=== PATIENT | male | born 1995 | race American Indian/Alaskan Native ===

== ENCOUNTER 2016-09-13 09:09 | Emergency (ER) | payer SELFPAY ==
[2016-09-13 09:56] VITALS: BP 123/97
--- NOTE | 2016-09-13 10:07 | Emergency Department Report ---
Chief Complaint: Abdominal Pain Stated Complaint: LFT SIDE PAIN Time Seen by Provider: 09/13/16 09:59 - HPI History of Present Illness: 21-year-old male presents today with left flank pain 2 days. Positive for dysuria, increased urinary frequency. Denies fever, chills, nausea, vomiting, chest pain, shortness of breath, penile discharge. Also complaining of abdominal pain prior to start of these symptoms. - ROS Review of Systems: Per HPI - Exam Vital Signs: Vital Signs 09/13/16 09:53 Temperature 98.4 F Pulse Rate 77 Respiratory 16 Rate Blood Pressure 123/97 O2 Sat by Pulse 99 Oximetry Physical Exam: General: 21-year-old male in no acute distress. Well-developed, well-nourished. CV: Regular rate and rhythm. Lungs: Clear to auscultation bilaterally. Abdomen: Tenderness to palpation of the epigastric region. No guarding or rebound tenderness. Negative for CVA tenderness bilaterally. MSE screening note: Focused history and physical exam performed. Due to findings the following was ordered: ED Disposition for MSE Condition: Stable
[2016-09-13 10:47] LABS: Basophils % (Auto) 0.8 % (0.0-1.8); Hematocrit 46.2 % (35.5-45.6); Hemoglobin 15.4 gm/dl (11.8-15.2); Mean Corpuscular HGB Conc 33 % (32-34); Mean Corpuscular Hemoglobin 28 pg (28-32); Mean Corpuscular Volume 83 fl (84-94); Platelet Count 243 K/mm3 (140-440); Red Blood Count 5.59 M/mm3 (3.65-5.03); Red Cell Distribution Width 13.2 % (13.2-15.2)
[2016-09-13 10:51] LABS: Amylase 82 units/L (27-131); Anion Gap 17 mmol/L; BUN/Creatinine Ratio 11.25; Blood Urea Nitrogen 9 mg/dL (9-20); Calcium 9.5 mg/dL (8.4-10.2); Carbon Dioxide 29 mmol/L (22-30); Chloride 99.1 mmol/L (98-107); Glucose 94 mg/dL (75-100); Lipase 14 units/L (13-60); Potassium 4.8 mmol/L (3.6-5.0); Sodium 140 mmol/L (137-145)
[2016-09-13 11:02] LABS: Bilirubin,Urine NEG (Negative); Blood,Urine NEG (Negative); Ketones,Urine NEG (Negative); Leukocyte Esterase,Urine TR (Negative); Nitrite,Urine NEG (Negative); Protein,Urine <15 mg/dL mg/dL (Negative); Urobilinogen,Urine < 2.0 mg/dL (<2.0)
--- NOTE | 2016-09-15 15:45 | ED Elopement Review ---
ED Pt Elopement review - Results review Lab results: Laboratory Tests 09/13/16 09/13/16 09/13/16 10:23 10:23 10:37 WBC 4.0 L RBC 5.59 H Hgb 15.4 H Hct 46.2 H MCV 83 L MCH 28 MCHC 33 RDW 13.2 Plt Count 243 Lymph % (Auto) 32.3 Graves % (Auto) 7.4 H Eos % (Auto) 1.0 Baso % (Auto) 0.8 Lymph # 1.3 Graves # 0.3 Eos # 0.0 Baso # 0.0 Seg Neutrophils % 58.5 Seg Neutrophils # 2.3 Sodium 140 Potassium 4.8 Chloride 99.1 Carbon Dioxide 29 Anion Gap 17 BUN 9 Creatinine 0.8 Estimated GFR > 60 BUN/Creatinine Ratio 11.25 Glucose 94 Calcium 9.5 Amylase 82 Lipase 14 Urine Color Straw Urine Turbidity Clear Urine pH 7.0 Ur Specific [place] 1.008 Urine Protein <15 mg/dl Urine Glucose (UA) Neg Urine Ketones Neg Urine Blood Neg Urine Nitrite Neg Urine Bilirubin Neg Urine Urobilinogen < 2.0 Ur Leukocyte Esterase Tr Urine WBC (Auto) 7.0 H Urine RBC (Auto) 1.0 - Call Back decision Pt Call Back Decision: No action required
== END 2016-09-13 16:08 | disposition left against medical advice (07) ==
LOC: ED 09:09
DX: R10.13 Epigastric pain (principal); R30.0 Dysuria; Z53.21 Procedure and treatment not carried out due to patient leaving prior to being seen by health care provider
CPT/HCPCS: 36415; 80048; 81001; 82150; 83690; 85025

== ENCOUNTER 2018-04-13 18:07 | Emergency (ER) | payer SELFPAY ==
[2018-04-13] MEDS ORDERED: NACL 0.9% 1000 ML 1,000 ML IV ONE (18:13)
[2018-04-13 18:27] VITALS: BP 121/90
[2018-04-13 18:28] LABS: Basophils % (Auto) 0.4 % (0.0-1.8); Eosinophils % (Auto) 0.1 % (0.0-4.3); Hematocrit 48.7 % (35.5-45.6); Lymphocytes # (Auto) 1.4 K/mm3 (1.2-5.4); Lymphocytes % (Auto) 16.7 % (13.4-35.0); Mean Corpuscular HGB Conc 35 % (32-34); Mean Corpuscular Hemoglobin 28 pg (28-32); Mean Corpuscular Volume 81 fl (84-94); Monocytes # (Auto) 0.4 K/mm3 (0.0-0.8); Monocytes % (Auto) 5.3 % (0.0-7.3); Platelet Count 276 K/mm3 (140-440); Red Blood Count 6.02 M/mm3 (3.65-5.03); Red Cell Distribution Width 13.8 % (13.2-15.2)
[2018-04-13 18:46] LABS: Alanine Aminotransferase 9 units/L (7-56); BUN/Creatinine Ratio 11; Blood Urea Nitrogen 11 mg/dL (9-20); Calcium 9.2 mg/dL (8.4-10.2); Hemolysis Index 11
== END 2018-04-13 21:00 | disposition left against medical advice (07) ==
LOC: ED 18:07
DX: R11.2 Nausea with vomiting, unspecified (principal); R50.9 Fever, unspecified; Z79.899 Other long term (current) drug therapy; Z53.21 Procedure and treatment not carried out due to patient leaving prior to being seen by health care provider
CPT/HCPCS: 36415; 80053; 82962; 85025; G0480; 80320